=== PATIENT | female | born 1950 | race Caucasian/White ===

== ENCOUNTER → 2023-06-05 11:51 | Outpatient (CLI) | payer OTHER, MEDICARE, SELFPAY | PROVIDERS: Family Provider Physician Assistant Medical; PCP Physician Assistant Medical; Referring Provider Orthopaedic Surgery; Visit Provider Orthopaedic Surgery | DX: M48.062 Spinal stenosis, lumbar region with neurogenic claudication (principal); M48.02 Spinal stenosis, cervical region; M47.812 Spondylosis without myelopathy or radiculopathy, cervical region | CPT/HCPCS: 95886; 95910 ==

== ENCOUNTER → 2025-03-10 11:05 | Outpatient (CLI) | payer OTHER, MEDICARE, SELFPAY ==
--- NOTE | 2025-03-10 11:11 | DI.MRI.S_ITS ---
PROCEDURE: MR KNEE LT WO CON INDICATIONS: KNEE INSTABILITY TECHNIQUE: Noncontrast sagittal PD fast spin echo and T2 fast spin echo with fat saturation, sagittal 3-D FLASH with fat saturation; coronal T1 spin echo and PD fast spin echo with fat saturation, and axial PD fast spin echo with fat saturation through the knee. COMPARISON: None. FINDINGS: Image quality: Excellent. Menisci: There is peripheral displacement of medial meniscus bowing medial collateral ligament. Complex tear involving anterior horn, body and posterior horn of medial meniscus is seen extending to both superior and inferior articulating surfaces. Complex tear involving the length of lateral meniscus is also seen extending to both superior and inferior articulating surfaces. Cruciate ligaments: The anterior no normal intact ACL is visualized. The PCL is intact. Medial structures: The medial collateral ligament appears thickened with intrasubstance T2 hyperintense signal and surrounding soft tissue edema. Visualized portions of the pes anserinus tendons appear normal. No abnormal bursal fluid. Lateral structures: The lateral collateral ligament is thickened. The long and short heads of the biceps femoris tendon appear intact. The popliteus tendon appears mildly thickened. Iliotibial band appears normal. Anterior structures: Distal quadriceps tendinosis. The patellar tendon is intact. Patellar alignment is normal. 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 [id number] patellofemoral compartment osteoarthritis is also seen with moderate grade chondromalacia. No acute fracture or dislocation. Osteochondral injuries and subcortical cystic changes are noted in medial and lateral femoral tibial compartments. Likely benign enchondroma is also noted within medial aspect of proximal tibial measuring space. Joint space: There is small joint effusion. A small Garcia's cyst is seen measures 1.8 x 2.2 x 2.8 cm in size. IMPRESSION: 1. 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 No acute fracture or dislocation. Likely enchondroma within proximal tibial shaft. 2. Small joint effusion and a small Garcia's cyst. No loose bodies. 3. Chronic appearing complex tear throughout medial and lateral menisci extending to both superior and inferior articulating surfaces. 4. 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 The PCL is intact. 5. Moderate grade MCL sprain/partial-thickness tear. Low-grade proximal LCL sprain. Proximal popliteus tendinosis. 6. Distal quadriceps tendinosis. Dictated by: Ryland Sanford M.D. on 03/11/2025 at 9:20 Approved by: Ryland Sanford M.D. on 03/11/2025 at 9:32
== END ==
PROVIDERS: PCP Physician Assistant; Referring Provider Physician Assistant; Visit Provider Physician Assistant
DX: S83.232A Complex tear of medial meniscus, current injury, left knee, initial encounter (principal); S83.272A Complex tear of lateral meniscus, current injury, left knee, initial encounter; S83.412A Sprain of medial collateral ligament of left knee, initial encounter; S83.422A Sprain of lateral collateral ligament of left knee, initial encounter; M25.462 Effusion, left knee; M17.12 Unilateral primary osteoarthritis, left knee; M25.362 Other instability, left knee
CPT/HCPCS: 73721